=== PATIENT | female | born 1995 | race Caucasian/White ===

== ENCOUNTER 2017-04-24 17:13 | Emergency (ER) | payer BC ==
[~2017-04-24] VITALS: Ht 165.1 cm; Wt 75.0 kg
[~2017-04-24 17:13] MED LIST: IMURAN50 M1 PO; NORCO 5-325 TA1 EACH PO; PENTASA; REMICADE100 MG IV
[2017-04-24] MEDS ORDERED: LEXAPRO20 M2 PO (19:07)
[2017-04-24] MEDS ORDERED: ZOLOFT50 M1 PO (19:07)
[2017-04-24] MEDS ORDERED: KLONOPIN0.5 M1 PO (19:07)
[2017-04-24 19:21] LABS: BASO % 0.4 % (0-2); EOS % 1.4 % (0-7); EOSINOPHIL ABSOLUTE COUNT 0.2 tho/cmm (0.0-0.7); HCT-HEMATOCRIT 41.6 % (34.0-49.0); HGB-HEMOGLOBIN 13.7 gm/dl (12.0-15.5); IMMATURE GRANULOCYTES ABSOLUTE 0.02 tho/cmm (0-0.03); IMMATURE GRANULOCYTES PERCENT 0.2 % (0-0.3); LYMPH % 37.2 % (20-45); LYMPH ABSOLUTE COUNT 4.2 tho/cmm (0.8-4.5); MCH (MEAN CORPUSCULAR HGB) 27.8 pg (28.0-32.0); MCHC MEAN CORPUSCULAR HGB CONC 32.9 % (32.0-36.0); MCV (MEAN CELL VOLUME) 84.6 fl (82.0-96.0); MEAN PLATELET VOLUME 10.1 cmc (9.4-12.4); MONO % 8.6 % (0-12); NEUTROPHIL ABSOLUTE COUNT 5.8 tho/cmm (1.6-8.0); NEUTROPHIL-AUTOMATED 5.8 tho/cmm (1.6-8.0); NEUTROPHILS % 52.2 % (40-80); PLATELET COUNT 265 tho/cmm (150-450); RED BLOOD COUNT 4.92 mil/cmm (4.00-5.20); RED CELL DISTRIBUTION WIDTH 14.2 % (12.4-16.4); WHITE BLOOD COUNT 11.2 tho/cmm (4.0-10.0)
[2017-04-24 19:30] LABS: PREGNANCY-SERUM NEGATIVE (NEGATIVE)
[2017-04-24 19:37] LABS: ALKALINE PHOSPHATASE 93 U/L (33-138); ALT/SGPT 55 U/L (12-78); ANION GAP 9 mmol/L (0-20); AST/SGOT 38 U/L (10-40); BILIRUBIN,TOTAL 0.4 mg/dl (0-1.5); BLOOD UREA NITROGEN 14 mg/dl (6-24); CALCIUM 9.4 mg/dl (8.5-10.5); CARBON DIOXIDE-VENOUS 26 mmol/L (22-32); CHLORIDE 107 mmol/l (96-110); CREATININE 0.88 mg/dl (0.50-1.10); LIPASE 144 U/L (73-393); POTASSIUM 3.8 mmol/L (3.7-5.1); SODIUM 138 mmol/L (135-145); eGFR VALUE FOR BLACK >90 mL/Min
[2017-04-24 19:38] LABS: URINE BILIRUBIN NEGATIVE (NEG); URINE BLOOD LARGE (NEG); URINE GLUCOSE (UA) MODERATE (NEG); URINE KETONE SMALL (NEG); URINE LEUKOCYTE ESTERASE NEGATIVE (NEG); URINE NITRITE NEGATIVE (NEG); URINE PROTEIN SMALL (NEG)
[2017-04-24 19:42] LABS: URINE APPEARANCE HAZY; URINE COLOR YELLOW
[2017-04-24 19:44] LABS: URINE AMORPHOUS 1+; URINE BACTERIA 1+; URINE MUCUS 1+; URINE WBC RARE /[HPF] (0-5)
[2017-04-24 19:51] LABS: GLUCOSE 66 mg/dL (70-110)
[2017-04-24] MEDS ORDERED: NORCO 5-325 TA1 EACH PO (21:59)
[2017-04-24] MEDS ORDERED: CIPRO500 M2 PO (21:59)
[2017-04-24] MEDS ORDERED: PREDNISONE20 M1 PO ×2 (21:59→22:10)
[2017-04-24] MEDS ORDERED: FLAGYL500 M1 PO (21:59)
[2017-04-24] MEDS ORDERED: ULTRAM50 M1 PO (22:10)
== END 2017-04-24 21:53 ==
LOC: EDMED 17:13
PROVIDERS: Physician Assistant
DX: K50.90 Crohn's disease, unspecified, without complications (principal); Z88.8 Allergy status to other drugs, medicaments and biological substances
CPT/HCPCS: J1170; J2405; J7030; Q9967